=== PATIENT | female | born 1975 | race Caucasian/White ===

== ENCOUNTER 2019-02-27 20:51 | Emergency (ER) | payer OTHER ==
[2019-02-27 23:03] LABS: ABS Eosinophils 0.2 10^3/ul (0-0.6); ABS Lymphocytes 2.7 10^3/ul (1.0-4.8); ABS Monocytes 0.4 10^3/ul (0-0.8); ABS Neutrophils 2.5 10^3/ul (1.5-7.7); Eosinophil % 2.9 %; Hematocrit 33 % (35-47); Hemoglobin 11.2 g/dL (12.0-16.0); Lymphocyte % 46.2 %; Mean Corpuscular HGB Conc 34 g/dL (31-36); Mean Corpuscular Hemoglobin 31 pg (27-31); Mean Corpuscular Volume 93 fL (80-97); Mean Platelet Volume 7.1 fL (7.4-10.4); Nucleated Red Blood Cells % 0.1; Platelet Count 226 10^3/uL (150-450); Red Blood Count 3.59 10^6 /uL (3.70-4.87); Red Cell Distribution Width 13 % (10-15); White Blood Count 5.9 10^3/uL (3.5-10.8)
[2019-02-27] MEDS ORDERED: levETIRAcetam TAB* 500 MG PO ONE (23:15)
--- NOTE | 2019-02-27 23:15 | ED ---
Neurological HPI - HPI Summary HPI Summary: This patient is a 44 year old F with a hx of epilepsy and TBI presenting to ED with a chief complaint of seizure at 1800 today. Patient is on Keppra 500mg BID and Gabapentin, but she states the Keppra is not working. Patient has been on Keppra for years. Patient stopped taking Klonopin a month ago. Patient was at [facility] and she remembers the room getting black and fuzzy. Patient was accompanied by staff. When she awoke, she had a metal taste in her mouth, cramping CP on right side down right arm, LUE numbness, and jaw pain. In the ED room, patient reports feeling twitchy. Patient had a seizure a week ago and another seizure two weeks ago. However, these are the only seizures she has had in a while. Patient typically has tonic-clonic generalized seizures. Today her seizure lasted about 3 minutes. Patient states she has never had CP following a seizure before. She did not bite her tongue or have bowel/bladder dysfunction during this seizure. The patient rates the pain 8/10 in severity. Chest pain has resolved. - History of Current Complaint Chief Complaint: EDGeneral Stated Complaint: SEIZURES PER PT Time Seen by Provider: 02/27/19 23:02 Hx Obtained From: Patient Onset/Duration: Sudden Onset Timing: Intermittent Episodes Lasting: - 3 minutes Onset Severity: Severe Seizure Severity: Severe Pain Intensity: 8 Pain Scale Used: 0-10 Numeric Aggravating: Nothing Alleviating: Nothing Associated Signs and Symptoms: Positive: Seizure, Chest Pain. Negative: Incontinent Bladder/Bowel Related Hx: Seizure - Allergy/Home Medications Allergies/Adverse Reactions: Allergies Allergy/AdvReac Type Severity Reaction Status Date / Time amoxicillin Allergy Anaphylatic Verified 02/27/19 21:01 Shock PMH/Surg Hx/FS Hx/Imm Hx Sensory History: Denies: Hx Legally Blind, Hx Deafness Opthamlomology History: Denies: Hx Legally Blind EENT History: Denies: Hx Deafness Neurological History: Reports: Hx Seizures, Other Neuro Impairments/Disorders - TBI - Surgical History Surgery Procedure, Year, and Place: Denies Infectious Disease History: No Infectious Disease History: Denies: Traveled Outside the [place] in Last 30 Days - Family History Known Family History: Negative: Hypertension, Diabetes - Social History Alcohol Use: None Hx Substance Use: No Substance Use Type: Reports: None Hx Tobacco Use: No Smoking Status (MU): Never Smoked Tobacco Review of Systems ENT: Other - Jaw pain, metal taste in mouth Positive: Chest Pain Neurological: Other - LUE numbness All Other Systems Reviewed And Are Negative: Yes Physical Exam - Summary Physical Exam Summary: Constitutional: Well-developed, Well-nourished, Alert. (-) Distressed Skin: Warm, Dry HENT: Normocephalic; Atraumatic Eyes: Conjunctiva normal Neck: Musculoskeletal ROM normal neck. (-) JVD, (-) Stridor, (-) Nuchal rigidity Cardio: Rhythm regular, rate normal, Heart sounds normal; Intact distal pulses; Radial pulses are 2+ and symmetric (-) Murmur Pulmonary/Chest wall: Effort normal. (-) Respiratory distress, (-) Wheezes, (-) Rales Abd: Soft, (-) tenderness, (-) Distension, (-) Guarding, (-) Rebound Musculoskeletal: (-) Edema Lymph: (-) Cervical adenopathy Neuro: Alert, Oriented x3 Psych: Mood and affect Normal Triage Information Reviewed: Yes Vital Signs On Initial Exam: Initial Vitals Temp Pulse Resp BP Pulse Ox 99.0 F 68 18 119/85 97 02/27/19 20:58 02/27/19 20:58 02/27/19 20:58 02/27/19 20:58 02/27/19 20:58 Vital Signs Reviewed: Yes Diagnostics - Vital Signs Vital Signs Temp Pulse Resp BP Pulse Ox 02/27/19 20:58 99.0 F 68 18 119/85 97 - Laboratory Lab Results: Lab Results 02/27/19 Range/Units 22:57 WBC 5.9 (3.5-10.8) 10^3/uL RBC 3.59 L (3.70-4.87) 10^6 /uL Hgb 11.2 L (12.0-16.0) g/dL Hct 33 L (35-47) % MCV 93 (80-97) fL MCH 31 (27-31) pg MCHC 34 (31-36) g/dL RDW 13 (10-15) % Plt Count 226 (150-450) 10^3/uL MPV 7.1 L (7.4-10.4) fL Neut % (Auto) 42.9 % Lymph % (Auto) 46.2 % Larue % (Auto) 7.5 % Eos % (Auto) 2.9 % Baso % (Auto) 0.5 % Absolute Neuts (auto) 2.5 (1.5-7.7) 10^3/ul Absolute Lymphs (auto) 2.7 (1.0-4.8) 10^3/ul Absolute Monos (auto) 0.4 (0-0.8) 10^3/ul Absolute Eos (auto) 0.2 (0-0.6) 10^3/ul Absolute Basos (auto) 0.0 (0-0.2) 10^3/ul Absolute Nucleated RBC 0.0 10^3/ul Nucleated RBC % 0.1 Result Diagrams: 02/27/19 22:57 02/27/19 22:57 Lab Statement: Any lab studies that have been ordered have been reviewed, and results considered in the medical decision making process. - EKG 2311 Cardiac Rate: NL - 62 BPM EKG Rhythm: Sinus Rhythm ST Segment: Normal Ectopy: None Summary of EKG Findings: An EKG at 2311 reveals normal sinus rhythm 62 BPM, nml axis, nml intervals. No STEMI. No acute changes. Re-Evaluation - Re-Evaluation First Eval Re-Evaluation Time: 23:48 Change: Improved Comment: Discussed results with patient. Patient reports feeling better. Discussed with patient to increase Keppra to 750mg BID. Patient will be discharged home with dx of seizures. Patient understands and agrees with this plan. Course/Dx - Course Course Of Treatment: 44-year-old female with a history of seizures on Keppra presents with seizure. - Physical exam of the well-appearing female, no focal neuro deficits. Patient denies infectious symptoms. Patient had an EEG did not show evidence of seizure activity in the past. Taking Keppra 500 twice a day and reports compliance. Patient denies drugs or alcohol. Patient also reports some right-sided chest pain at the time of her seizure-like activity, normal troponin, normal EKG do not suspect cardiac causes for chest pain. Heart score 0. Patient is not hypoxic. No cough or infectious symptoms. Patient advised that she can increase her Keppra 750 mg twice a day and follow-up with a neurologist. Unclear patient is still having seizures as EEG last time was negative for epileptiform activity. - Diagnoses Provider Diagnoses: Seizures Discharge ED - Sign-Out/Discharge Documenting (check all that apply): Patient Departure - Discharge Patient Received Moderate/Deep Sedation with Procedure: No - Discharge Plan Condition: Stable Disposition: HOME Patient Education Materials: Epilepsy (ED) Referrals: [facility] [Outside] Rachel Becerra MD [Medical Doctor] - 3 Days Additional Instructions: You were seen in the emergency department for a seizure. Please follow-up with a neurologist. Please take a shower and do not take a bath, do not swim alone. Do not drive or operate machinery. Please increase your keppra to 750 mg twice a day and follow-up with your doctor in the next 1-2 days. Please return to emergency department for continued seizures, or if you're concerned - Billing Disposition and Condition Condition: STABLE Disposition: Home - Attestation Statements Document Initiated by Corrine: Yes Documenting Scribe: Eddy Monique Provider For Whom Corrine is Documenting (Include Credential): Ricki Smith MD Scribe Attestation: I, Eddy Monique, scribed for Ricki Smith MD on 02/27/19 at [id number]. Scribe Documentation Reviewed: Yes Provider Attestation: The documentation as recorded by the Eddy arambula accurately reflects the service I personally performed and the decisions made by me, Ricki Smith MD Status of Scribe Document: Viewed
[2019-02-27 23:26] LABS: Albumin 3.9 g/dL (3.2-5.2); Albumin/Globulin Ratio 1.4 (1-3); BUN/Creatinine Ratio 20.7 (8-20); Calcium 9.1 mg/dL (8.6-10.3); EGFR African American 85.2 (>60); EGFR Non-African American 70.4 (>60); Globulin 2.8 g/dL (2-4); Potassium 4.5 mmol/L (3.5-5.0); Total Bilirubin 0.3 mg/dL (0.2-1.0); Total Protein 6.7 g/dL (6.4-8.9)
[2019-02-27 23:59] VITALS: BP 107/70
[2019-02-28 00:15] LABS: Urine Benzodiazepine Screen None Detected (None Detect); Urine Opiates Screen None Detected (None Detect)
== END 2019-02-27 23:58 | disposition home or self-care (01) ==
LOC: ED 20:51
DX: G40.909 Epilepsy, unspecified, not intractable, without status epilepticus (principal); R07.9 Chest pain, unspecified; Z88.0 Allergy status to penicillin
CPT/HCPCS: 36415; 80053; 80307; 84484; 85025; 93005; 99282; A9270-GY